=== PATIENT | female | born 1950 | race African-American/Black ===

== ENCOUNTER 2016-06-02 16:12 | Inpatient (IN) | payer OTHER ==
[2016-06-02] MEDS ORDERED: DEXAMETHASONE SOD PHOSPHATE 20 MG/5 ML VIAL IVPB ONE (18:29)
--- NOTE | 2016-06-02 18:29 | PDOC ---
History of Present Illness - History of Present Illness Initial Comments: 06/02/16 20:29 Patient is a 66 year old female with significant medical hx of hypercholesterolemia who is presenting to the ED with sore throat for several days. The patient complains of sore throat with radiation to her right ear and trismus. She has been having difficulty taking in PO due to pain. The patient also complains of trismus; she is able to speak in clear sentences. The patient was sent by PMD, Dr. Millard. <Bess Rust - Last Filed: 06/02/16 20:29> <Valerie Aviles - Last Filed: 06/03/16 01:38> - General Chief Complaint: Sore Throat Stated Complaint: PCP SENT/EVALUATION Time Seen by Provider: 06/02/16 17:14 Past History <Bess Rust - Last Filed: 06/02/16 20:29> - Past Medical History Diabetes: Yes (BORDERLINE) Hypercholesterolemia: Yes - Surgical History Appendectomy: Yes - Psycho/Social/Smoking Cessation Hx Anxiety: No Suicidal Ideation: No Smoking History: Never smoked Have you smoked in the past 12 months: No If you are a former smoker, when did you quit?: 45 years ago Information on smoking cessation initiated: No Hx Alcohol Use: No Drug/Substance Use Hx: No Substance Use Type: None <Valerie Aviles - Last Filed: 06/03/16 01:38> - Past Medical History Allergies/Adverse Reactions: Allergies Allergy/AdvReac Type Severity Reaction Status Date / Time aspirin Allergy Intermediate rash and Verified 06/02/16 16:19 hives codeine Allergy Intermediate SEVERE Verified 06/02/16 16:19 INDIGESTION Home Medications: Ambulatory Orders Gabapentin [Neurontin] 100 mg PO BID 06/19/15 Rosuvastatin [Crestor -] 5 mg PO HS 06/19/15 Clopidogrel Bisulfate [Clopidogrel] 75 mg PO ASDIR 06/02/16 Furosemide 20 mg PO ASDIR 06/02/16 Review of Systems - Review of Systems Comments:: 06/02/16 20:30 CONSTITUTIONAL: Absent: fever, chills, diaphoresis, generalized weakness, malaise, loss of appetite HEENT: Present: throat pain, right ear pain, trismus Absent: rhinorrhea, nasal congestion, mouth swelling, eye pain, visual changes CARDIOVASCULAR: Absent: chest pain, syncope, palpitations, irregular heart rate, lightheadedness , peripheral edema RESPIRATORY: Absent: cough, shortness of breath, dyspnea with exertion, orthopnea, wheezing, stridor, hemoptysis GASTROINTESTINAL: Absent: abdominal pain, abdominal distension, nausea, vomiting, diarrhea, constipation, melena, hematochezia GENITOURINARY: Absent: dysuria, frequency, urgency, hesitancy, hematuria, flank pain, genital pain MUSCULOSKELETAL: Absent: myalgia, arthralgia, joint swelling SKIN: Absent: rash, itching, pallor HEMATOLOGIC/IMMUNOLOGIC: Absent: easy bleeding, easy bruising, lymphadenopathy, frequent infections ENDOCRINE: Absent: unexplained weight gain, unexplained weight loss, heat intolerance, cold intolerance NEUROLOGIC: Absent: headache, focal weakness or paresthesia, dizziness, unsteady gait, seizure, mental status changes, bladder or bowel incontinence. PSYCHIATRIC: Absent: anxiety, depression, suicidal or homicidal ideation, hallucinations <Bess Rust - Last Filed: 06/02/16 20:29> *Physical Exam - Vital Signs Last Vital Signs Temp Pulse Resp BP Pulse Ox 99.3 F 111 H 18 148/82 98 06/02/16 16:15 06/02/16 16:15 06/02/16 16:15 06/02/16 16:15 06/02/16 16:15 - Physical Exam Comments: 06/02/16 20:31 GENERAL: Well developed, well nourished. Awake and alert. No acute distress. No tripoding. HEENT: Normocephalic, atraumatic. PERRLA, EOMI. No conjunctival pallor. Sclera are non- icteric. Moist mucous membranes. Oropharynx is clear. Able to handle her own saliva. No hot potato voice. Trismus. Able to speak with clear sentences. NECK: Supple. Full ROM. No JVD. Carotid pulses 2+ and symmetric, without bruits. No thyromegaly. No lymphadenopathy. CARDIOVASCULAR: Regular rate and rhythm. No murmurs, rubs, or gallops. Distal pulses are 2+ and symmetric. PULMONARY: No evidence of respiratory distress. Lungs clear to auscultation bilaterally. No wheezing, rales or rhonchi. ABDOMINAL: Soft. Non-tender. Non-distended. No rebound or guarding. No organomegaly. Normoactive bowel sounds. MUSCULOSKELETAL: Normal range of motion at all joints. No bony deformities or tenderness. No CVA tenderness. EXTREMITIES: No cyanosis. No clubbing. No edema. No calf tenderness. SKIN: Warm and dry. Normal capillary refill. No rashes. No jaundice. NEUROLOGICAL: Alert, awake, appropriate. Cranial nerves 2-12 intact. No gross focal neurological deficits. Normal speech. Gait is normal without ataxia. PSYCHIATRIC: Cooperative. Good eye contact. Appropriate mood and affect. <Bess Rust - Last Filed: 06/02/16 20:29> - Vital Signs Last Vital Signs Temp Pulse Resp BP Pulse Ox 99.3 F 111 H 18 148/82 98 06/02/16 16:15 06/02/16 16:15 06/02/16 16:15 06/02/16 16:15 06/02/16 16:15 <Valerie Aviles - Last Filed: 06/03/16 01:38> ED Treatment Course - LABORATORY CBC & Chemistry Diagram: 06/02/16 18:46 06/02/16 18:46 - ADDITIONAL ORDERS Additional order review: Laboratory Results 06/02/16 06/02/16 18:46 18:46 Sodium 138 Potassium 3.8 Chloride 103 Carbon Dioxide 30 Anion Gap 5 L BUN 15 D Creatinine 1.0 Creat Clearance w eGFR 55.30 Random Glucose 92 D Lactic Acid 0.848 Calcium 8.9 Total Bilirubin 1.0 D AST 15 ALT 20 Alkaline Phosphatase 86 Total Protein 8.3 H Albumin 3.8 06/02/16 18:46 RBC 4.96 MCV 78.0 L MCHC 31.7 L RDW 15.5 MPV 7.8 Neutrophils % 65.6 D Lymphocytes % 25.2 D Monocytes % 7.4 D Eosinophils % 1.1 D Basophils % 0.7 D - RADIOLOGY Radiograph Interpretation: 06/02/16 20:34 Chest X-Ray Impression: Mild bilateral increased interstitial markings and minimal bibasal atelectatic changes, left more the right without gross evidence of infiltrates. Reported By: Kenia Obando MD - Medications Given in the ED: ED Medications Discontinued Medications Generic Name Dose Route Start Last Admin Trade Name Freq PRN Reason Stop Dose Admin Acetaminophen 1,000 mg 06/02/16 18:31 06/02/16 18:46 Ofirmev Injection - IVPB 06/02/16 18:32 1,000 mg ONCE ONE Administration Dexamethasone Sodium Phosphate 20 mg 06/02/16 18:29 06/02/16 18:40 Decadron Injection - IVPB 06/02/16 18:30 20 mg ONCE ONE Administration <Bess Rust - Last Filed: 06/02/16 20:29> - LABORATORY CBC & Chemistry Diagram: 06/02/16 18:46 06/02/16 18:46 <Valerie Aviles - Last Filed: 06/03/16 01:38> Medical Decision Making - Medical Decision Making 06/03/16 01:35 66-year-old female was referred to the emergency department by Dr. Millard The patient had complaint of sore throat since Wednesday and then developed difficulty swallowing and trismus. On exam, she has peritonsillar swelling and exudate, he also has some limited opening of her jaw due to trismus -She is not tripoding. She is able to handle her own secretions. She does not have a hot potato voice -Patient received I see steroids and IV antibiotics Her symptoms greatly improved after the decadron CBC and chemistries were reviewed. She has no leukocytosis or fever at This time CAT scan of her neck did reveal a right-sided peritonsillar abscess of 2 cm x 1.3 cm with mild impingement of the airway Case discussed with Dr. Millard and the patient admitted for IV antibiotics, Unasyn throat consultation in the morning Impression right. Also abscess <Valerie Aviles - Last Filed: 06/03/16 01:38> *DC/Admit/Observation/Transfer - Attestations Scribe Attestion: 06/02/16 20:34 Documentation prepared by Bess Rust, acting as medical record technician for Valerie Aviles MD. <Bess Rust - Last Filed: 06/02/16 20:29> - Discharge Dispostion Admit: Yes <Vlaerie Aviles - Last Filed: 06/03/16 01:38> Diagnosis at time of Disposition: Peritonsillar abscess - Referrals Referrals: Tommie Millard MD [Primary Care Provider] -
[2016-06-02] MEDS ORDERED: ACETAMINOPHEN 1000 MG/100 ML VIAL (NON FORMULARY) IVPB ONE (18:31)
[2016-06-02] MEDS ORDERED: CEFTRIAXONE 1,000 MG in DEXTROSE 5%-WATER - 50 ML IVPB ONE (18:32)
[2016-06-02] MEDS ORDERED: ACETAMINOPHEN INJECTION 100 ML IVPB ONE (18:38)
[2016-06-02] MEDS ORDERED: DEXAMETHASONE SOD PHOSPHATE 10 MG/1 ML VIAL ONE (18:38)
[2016-06-02 19:03] LABS: BASOPHIL 0.7 % (0-2.0); EOSINOPHIL 1.1 % (0-4.5); MCH 24.8 pg (25.7-33.7); MCHC 31.7 g/dl (32.0-36.0); MEAN PLT VOLUME 7.8 fl (7.5-11.1); NEUTROPHILS 65.6 % (42.8-82.8); PLATELET COUNT 238 K/MM3 (134-434); RDW 15.5 % (11.6-15.6); WHITE BLOOD COUNT 9.5 K/mm3 (4.0-10.0)
[2016-06-02 19:30] LABS: ALBUMIN 3.8 g/dl (3.4-5.0); CALCIUM 8.9 mg/dL (8.5-10.1); COCKROFT - GAULT 96.1605; TOT PROT 8.3 g/dl (6.4-8.2)
[2016-06-02] MEDS ORDERED: CEFTRIAXONE 50 ML ONE (20:38)
[2016-06-02] MEDS ORDERED: ACETAMINOPHEN 325 MG TABLET (FP) PO PRN (23:54)
[2016-06-03] MEDS ORDERED: ALBUTEROL SO4 0.083% IH SOL 2.5 MG/3 ML VIAL.NEB. NEB ONE (00:22)
[2016-06-03] MEDS: ALBUTEROL SO4 0.083% IH SOL 2.5 MG/3 ML VIAL.NEB. NEB SCH ×3 (00:45→18:10)
[2016-06-03] MEDS: D5-1/2NS+20 MEQ KCL - 1,000 ML IV SCH ×3 (01:43→16:35)
[2016-06-03] MEDS: DEXAMETHASONE SOD PHOSPHATE 10 MG/1 ML VIAL IVPB SCH ×4 (04:30→22:00)
[2016-06-03 05:31] VITALS: BMI 34.1
--- NOTE | 2016-06-03 07:58 | HP ---
Admitting History and Physical - Admission History of Present Illness: 66 y/o female with h/o HLD who presented to office with sore throat and ear pain for one week. 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 Cardiovascular: Yes: HTN, Hyperlipdemia Pulmonary: No: COPD Gastrointestinal: No: Cancer, Constipation Renal/: No: Renal Failure, Renal Inusuff Heme/Onc: No: Anemia, Cancer ENT: Yes: Other (sore throat and pain on swallowing) - Smoking History Smoking history: Never smoked Have you smoked in the past 12 months: No If you are a former smoker, when did you quit?: 45 years ago - Alcohol/Substance Use Hx Alcohol Use: No Home Medications - Allergies Allergies/Adverse Reactions: Allergies Allergy/AdvReac Type Severity Reaction Status Date / Time aspirin Allergy Intermediate rash and Verified 06/02/16 16:19 hives codeine Allergy Intermediate SEVERE Verified 06/02/16 16:19 INDIGESTION - Home Medications Home Medications: Ambulatory Orders Gabapentin [Neurontin] 100 mg PO BID 06/19/15 Rosuvastatin [Crestor -] 5 mg PO HS 06/19/15 Clopidogrel Bisulfate [Clopidogrel] 75 mg PO ASDIR 06/02/16 Furosemide 20 mg PO ASDIR 06/02/16 Review of Systems - Review of Systems Constitutional: denies: Fever Eyes: reports: No Symptoms HENT: reports: Difficult Swallowing, Ear Pain, Throat Pain Neck: reports: Tenderness Cardiovascular: denies: Chest Pain, Palpitations Respiratory: denies: SOB, SOB on Exertion Gastrointestinal: reports: No Symptoms Genitourinary: reports: No Symptoms Neurological: reports: No Symptoms Physical Examination Vital Signs: Vital Signs Temperature 97.7 F 06/03/16 06:00 Pulse Rate 83 06/03/16 06:00 Respiratory Rate 20 06/03/16 06:00 Blood Pressure 112/60 06/03/16 06:00 O2 Sat by Pulse Oximetry (%) 98 06/03/16 04:00 HENT: Yes: Pharyngeal Erythema, Other (swelling right tonsilar area) Neck: Yes: Supple Cardiovascular: Yes: Regular Rate and Rhythm Respiratory: Yes: Regular, CTA Bilaterally Gastrointestinal: Yes: Normal Bowel Sounds, Soft Imaging - Results Cat Scan: Report Reviewed Problem List - Problems (1) Peritonsillar abscess Assessment/Plan: IV ABX ID AND ENT IV STEROIDS IVF Code(s): J36 - PERITONSILLAR ABSCESS (2) HLD (hyperlipidemia) Assessment/Plan: CRESTOR Code(s): E78.5 - HYPERLIPIDEMIA, UNSPECIFIED (3) HTN (hypertension) Assessment/Plan: MONITOR OFF MEDS Code(s): I10 - ESSENTIAL (PRIMARY) HYPERTENSION
[2016-06-03 07:59] LABS: BASOPHIL 0.2 % (0-2.0); MCH 24.8 pg (25.7-33.7); MCHC 31.7 g/dl (32.0-36.0); MEAN CELL VOLUME 78.1 fl (80-96); MEAN PLT VOLUME 7.9 fl (7.5-11.1); PLATELET COUNT 200 K/MM3 (134-434); RDW 15.2 % (11.6-15.6); WHITE BLOOD COUNT 6.5 K/mm3 (4.0-10.0)
--- NOTE | 2016-06-03 08:22 | EKG ---
Test Reason : Blood Pressure : / mmHG Vent. Rate : 088 BPM Atrial Rate : 088 BPM P-R Int : 200 ms QRS Dur : 096 ms QT Int : 356 ms P-R-T Axes : 050 015 048 degrees QTc Int : 430 ms NORMAL SINUS RHYTHM NORMAL ECG WHEN COMPARED WITH ECG OF 21-MAR-2004 09:01, NO SIGNIFICANT CHANGE WAS FOUND Confirmed by ACACIA CHACKO MD ([id number]) on 06/03/2016 8:22:23 AM Referred By: Confirmed By:ACACIA CHACKO MD
[2016-06-03 08:55] LABS: ALBUMIN 3.1 g/dl (3.4-5.0); ALK PHOS 81 U/L (45-117); ANION GAP 13 (8-16); BILIRUBIN,TOTAL 0.6 mg/dL (0.2-1.0); CALCIUM 8.7 mg/dL (8.5-10.1); CO2 23 mmol/L (21-32); COCKROFT - GAULT 103.3685; CREATININE 0.9 mg/dL (0.55-1.02); GLUCOSE,RANDOM 282 mg/dL (74-106); SGOT/AST 11 U/L (15-37); SGPT/ALT 18 U/L (12-78); TOT PROT 7.2 g/dl (6.4-8.2)
[2016-06-03] MEDS ORDERED: PT OWN MED DRAWER 7, Y5N ONE ×3 (09:35→21:52)
[2016-06-03] MEDS: GABAPENTIN 100 MG CAPSULE (FP) PO SCH ×2 (09:49→22:00)
[2016-06-03] MEDS: HEPARIN NA (PORCINE) 5,000 UNITS/ML 1ML VIAL SQ SCH ×2 (09:49→22:00)
[2016-06-03] MEDS ORDERED: CEFTRIAXONE 2 GM in DEXTROSE 5%-WATER - 100 ML IVPB SCH (10:00)
--- NOTE | 2016-06-03 10:57 | CONSULT ---
Consultation: REQUESTING PROVIDER: CONSULT REQUEST: We have been asked to medically evaluate this patient for ( specify). HISTORY OF PRESENT ILLNESS: The pt is a 66 year old female with a PMH of HDL and diabetes mellitus who presents to the hospital referred from her PCP office. She has been complaining of difficulty swallowing and pain on right side of her neck x 1 week, worse in the past several days. Today she is complaining of discomfort with swallowing and pain on right side of her neck only when trying to stick out her tongue. She states that it has improved since yesterday when she presented to ED. She denied sick contacts, fever, chills, chest pain, difficulty breathing, SOB, chest pain. She denies abdominal pain, N/V, diarrhea, constipation. She denies dysuria, increased frequency, urgency. REVIEW OF SYSTEMS: CONSTITUTIONAL: Absent: fever, chills, diaphoresis, generalized weakness, malaise, loss of appetite, weight change HEENT: throat pain, throat swelling, difficulty swallowing, Absent: rhinorrhea, nasal congestion, mouth swelling, ear pain, eye pain, visual changes CARDIOVASCULAR: Absent: chest pain, syncope, palpitations, irregular heart rate, lightheadedness , peripheral edema RESPIRATORY: Absent: cough, shortness of breath, dyspnea with exertion, orthopnea, wheezing, stridor, hemoptysis GASTROINTESTINAL: Absent: abdominal pain, abdominal distension, nausea, vomiting, diarrhea, constipation, melena, hematochezia GENITOURINARY: Absent: dysuria, frequency, urgency, hesitancy, hematuria, flank pain, genital pain MUSCULOSKELETAL: Absent: myalgia, arthralgia, joint swelling, back pain, neck pain SKIN: Absent: rash, itching, pallor NEUROLOGIC: Absent: headache, focal weakness or paresthesias, dizziness, unsteady gait, seizure, mental status changes, bladder or bowel incontinence PSYCHIATRIC: Absent: anxiety, depression, suicidal or homicidal ideation, hallucinations. PHYSICAL EXAMINATION Vital Signs - 24 hr 06/03/16 06/03/16 04:00 06:00 Temperature 97.5 F L 97.7 F Pulse Rate 88 83 Respiratory 20 20 Rate Blood Pressure 158/82 112/60 O2 Sat by Pulse 98 Oximetry (%) GENERAL: Awake, alert, and fully oriented, in no acute distress. HEAD: Normal with no signs of trauma. EYES: Pupils equal, round and reactive to light, extraocular movements intact, sclera anicteric, conjunctiva clear. EARS, NOSE, THROAT: Ears normal, nares patent, oropharynx; difficulty with sticking out her tongue, swelling present. Moist mucous membranes. NECK: Normal range of motion, supple without lymphadenopathy, JVD, or masses. LUNGS: Breath sounds equal, clear to auscultation bilaterally. No wheezes, and no crackles. No accessory muscle use. HEART: Regular rate and rhythm, normal S1 and S2 without murmur, rub or gallop. ABDOMEN: Soft, nontender, not distended, normoactive bowel sounds, no guarding, no rebound, no masses. No hepatomegaly or splenomegaly. MUSCULOSKELETAL: Normal range of motion at all joints. No bony deformities or tenderness. No CVA tenderness. UPPER EXTREMITIES: 2+ pulses, warm. No cyanosis. No clubbing. No peripheral edema. LOWER EXTREMITIES: 2+ pulses, warm. No calf tenderness. No peripheral edema, venous stasis changes B/L. NEUROLOGICAL: Cranial nerves II-XII intact. Normal speech. Normal gait. PSYCHIATRIC: Cooperative. Good eye contact. Appropriate mood and affect. SKIN: Warm, dry, normal turgor, no rashes or lesions noted. Laboratory Results - last 24 hr 06/03/16 06/03/16 06/03/16 00:31 06:15 06:15 WBC 6.5 D RBC 4.71 Hgb 11.7 Hct 36.8 MCV 78.1 L MCHC 31.7 L RDW 15.2 Plt Count 200 MPV 7.9 Neutrophils % 85.0 H D Lymphocytes % 13.8 D Monocytes % 1.0 L D Eosinophils % 0.0 D Basophils % 0.2 Sodium 139 Potassium 4.1 Chloride 103 Carbon Dioxide 23 D Anion Gap 13 BUN 19 H D Creatinine 0.9 Creat Clearance w eGFR > 60 POC Glucometer [phone] Random Glucose 282 H D Calcium 8.7 Total Bilirubin 0.6 D AST 11 L D ALT 18 Alkaline Phosphatase 81 Total Protein 7.2 Albumin 3.1 L Active Medications Generic Name Dose Route Start Last Admin Trade Name Freq PRN Reason Stop Dose Admin Acetaminophen 650 mg 06/02/16 23:54 Tylenol - PO Q4H PRN FEVER OR PAIN Albuterol Sulfate 1 amp 06/03/16 00:00 06/03/16 00:45 Ventolin 0.083% Nebulizer Soln - NEB Not Given Q6HPO [facility] Dexamethasone Sodium Phosphate 10 mg 06/03/16 03:00 06/03/16 09:48 Decadron Injection - IVPB 10 mg Q6H-IV [facility] Administration Gabapentin 100 mg 06/03/16 10:00 06/03/16 09:49 Neurontin - PO 100 mg BID [facility] Administration Heparin Sodium (Porcine) 5,000 unit 06/03/16 10:00 06/03/16 09:49 Heparin - SQ 5,000 unit BID [facility] Administration Ceftriaxone Sodium 2 gm/ 100 mls @ 200 mls/hr 06/03/16 10:00 Dextrose IVPB DAILY [facility] Potassium Chloride/Dextrose/Sod Cl 1,000 mls @ 100 mls/hr 06/02/16 23:45 04:39 D5-1/2ns+20 Meq Kcl - IV 100 mls/hr ASDIR [facility]NAN[facility] Administration Rosuvastatin Calcium 5 mg 06/03/16 22:00 Crestor - PO HS [facility] ASSESSMENT/PLAN: The pt is a 66 year old female with a PMH of HDL and diabetes mellitus who presents to the hospital referred from her PCP office. She has been complaining of difficulty swallowing and pain on right side of her neck x 1 week, worse in the past several days. She is admitted for peritonsillar abscess. Peritonsillar abscess: -continue Ceftriaxone 2g qd, added Clindamycin 600 mg Q8h -ASO ordered -throat culture ordered -CT neck rewieved -continue Decadron -cont Tylenol when needed HDL: -continue Crestor Dispo: We will continue to follow the patient. Thank you for this consultative opportunity. Visit type - Emergency Visit Emergency Visit: Yes ED Registration Date: 06/02/16 Care time: The patient presented to the Emergency Department on the above date and was hospitalized for further evaluation of their emergent condition. - New Patient This patient is new to me today: Yes Date on this admission: 06/03/16 - Critical Care Critical Care patient: No
--- NOTE | 2016-06-03 11:37 | PN ---
Teaching Attending Note Name of Resident: Gayle Suazo ATTENDING PHYSICIAN STATEMENT I saw and evaluated the patient. I reviewed the resident's note and discussed the case with the resident. I agree with the resident's findings and plan as documented. SUBJECTIVE: OBJECTIVE: ASSESSMENT AND PLAN: Peritonsillar abscess ENT evaluation Await blood c/s. Throat c/s , ASO titer Continue ceftriaxone/ clindamycin Taper steroids
[2016-06-03] MEDS: CEFTRIAXONE 2G/100 ML IVPB SCH (11:40)
--- NOTE | 2016-06-03 11:51 | EKG ---
Test Reason : Blood Pressure : / mmHG Vent. Rate : 071 BPM Atrial Rate : 071 BPM P-R Int : 232 ms QRS Dur : 102 ms QT Int : 394 ms P-R-T Axes : 060 -03 039 degrees QTc Int : 428 ms SINUS RHYTHM WITH 1ST DEGREE A-V BLOCK OTHERWISE NORMAL ECG WHEN COMPARED WITH ECG OF 02-JUN-2016 18:52, [place] INTERVAL HAS INCREASED Confirmed by ARNULFO CARMONA, DAYSI ([id number]) on 06/03/2016 11:51:49 AM Referred By: Moon HERRERA Confirmed By:DAYSI ARREDONDO MD
[2016-06-03 12:57] LABS: ANTISTREP O SCREEN POSITIVE
[2016-06-03] MEDS: CLINDAMYCIN 600MG PREMIX IVPB 50 ML IVPB SCH (17:29)
--- NOTE | 2016-06-03 20:47 | CON.ENT ---
Consult Consult Specialty:: ENT Referred by:: Dr. Millard Reason for Consultation:: peritonsillar abscess - History of Present Illness Chief Complaint: throat pain History of Present Illness: 66 yo F admitted 06-02-16 with throat pain and peritonsillar abscess reports intermittent history of tonsil problem ~every year often gets right ear pain associated with it Now, has had throat problem since 05-26, got very bad 05-29, went to Dr. Millard's office yesterday 06-02 and admitted via ER. has had IV fluids and IV antibiotics (ceftriaxone and clindamycin) as well as IV steroids reports improvement prior had severe pain and could not swallow, also noted voice change and inability to open mouth much. had right ear pain. Now reports reduced pain, voice better, can open mouth more but still pain with wide opening. 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 Cardio/Vascular: Yes: HTN, Hyperlipdemia Pulmonary: No: COPD Gastrointestinal: No: Cancer, Constipation Renal/: No: Renal Failure, Renal Inusuff ENT: Yes: Other (sore throat and pain on swallowing) - Alcohol/Substance Use Hx Alcohol Use: No - Smoking History Smoking history: Never smoked Have you smoked in the past 12 months: No If you are a former smoker, when did you quit?: 45 years ago Home Medications - Allergies Allergies/Adverse Reactions: Allergies Allergy/AdvReac Type Severity Reaction Status Date / Time aspirin Allergy Intermediate rash and Verified 06/02/16 16:19 hives codeine Allergy Intermediate SEVERE Verified 06/02/16 16:19 INDIGESTION - Home Medications Home Medications: Ambulatory Orders Gabapentin [Neurontin] 100 mg PO BID 06/19/15 Rosuvastatin [Crestor -] 5 mg PO HS 06/19/15 Clopidogrel Bisulfate [Clopidogrel] 75 mg PO ASDIR 06/02/16 Furosemide 20 mg PO ASDIR 06/02/16 Review of Systems - Review of Systems HENT: reports: Ear Pain, Throat Pain Physical Exam-ENT Vital Signs: Vital Signs Temperature 98.1 F 06/03/16 17:10 Pulse Rate 72 06/03/16 17:10 Respiratory Rate 20 06/03/16 17:10 Blood Pressure 130/82 06/03/16 17:10 O2 Sat by Pulse Oximetry (%) 98 06/03/16 09:00 Constitutional: Yes: Well Nourished, No Distress, Obese Head: Yes: WNL Face: Yes: WNL Eyes: Yes: WNL Nose: Yes: Edema Nasal Passage: Yes: Other (turbinate hypertrophy) Oral/Pharynx: Yes: Other (partial dentures, slight trismus, soft palate normal, no bulging, no exudate oropharynx narrowed from elevated tongue (position 3), tonsils not significantly enlarged, no clinical peritonsillar abscess tonight) Outer Ear: Yes: WNL Ear Canal: Yes: WNL Tympanic Membrane: Yes: WNL Neck: Yes: Other (tender right anterior cervical, small LN palpable, no other mass, supple, salivary and thyroid glands WNL voice clear and strong, no stridor or respiratory distress) Respiratory: Yes: WNL Imaging - Results Cat Scan: Report Reviewed, Image Reviewed (right suspected peritonsillar vs parapharyngeal abscess) Problem List - Problems (1) Peritonsillar abscess Assessment/Plan: hx recurrent (annual) tonsil infections, but a 9 day hx of severely worsening pain improved since admission, rx ceftriaxone/clindamycin, steroids had trismus and voice change, improving WBC WNL, blood culture neg but ASO + Recommend: continue antibiotics as per ID ok to taper steroids advance diet as tolerated hope for continued clinical improvement no surgical intervention indicated now given clinical improvement with medical therapy Thank you for consultation, Luis Pagan MD FACS Code(s): J36 - PERITONSILLAR ABSCESS
[2016-06-03] MEDS: ROSUVASTATIN CA 5 MG TABLET (FP) PO SCH (22:00)
[2016-06-04] MEDS: ALBUTEROL SO4 0.083% IH SOL 2.5 MG/3 ML VIAL.NEB. NEB SCH ×5 (00:04→23:34)
[2016-06-04] MEDS: CLINDAMYCIN 600MG PREMIX IVPB 50 ML IVPB SCH ×3 (01:25→17:13)
[2016-06-04] MEDS: DEXAMETHASONE SOD PHOSPHATE 10 MG/1 ML VIAL IVPB SCH ×3 (02:19→21:25)
--- NOTE | 2016-06-04 07:45 | PN ---
Progress Note, Physician - Current Medication List Current Medications: Active Medications Acetaminophen (Tylenol -) 650 mg PO Q4H PRN PRN Reason: FEVER OR PAIN Albuterol Sulfate (Ventolin 0.083% Nebulizer Soln -) 1 amp NEB Q6HPO [facility] Last Admin: 06/04/16 06:46 Dose: Not Given Dexamethasone Sodium Phosphate (Decadron Injection -) 10 mg IVPB Q6H-IV [facility] Last Admin: 06/04/16 02:19 Dose: 10 mg Gabapentin (Neurontin -) 100 mg PO BID [facility] Last Admin: 06/03/16 22:00 Dose: 100 mg Heparin Sodium (Porcine) (Heparin -) 5,000 unit SQ BID [facility] Last Admin: 06/03/16 22:00 Dose: 5,000 unit Potassium Chloride/Dextrose/Sod Cl (D5-1/2ns+20 Meq Kcl -) 1,000 mls @ 100 mls/ hr IV ASDIR [facility] Last Admin: 06/03/16 16:35 Dose: 100 mls/hr Clindamycin Phosphate (Cleocin 600 Mg Premix Ivpb -) 50 mls @ 100 mls/hr IVPB Q8H-IV [facility] Last Admin: 06/04/16 01:25 Dose: 100 mls/hr Ceftriaxone Sodium (Rocephin 2gm Ivpb (Pre-Docked)) 100 mls @ 200 mls/hr IVPB DAILY [facility] Last Admin: 06/03/16 11:40 Dose: 200 mls/hr Rosuvastatin Calcium (Crestor -) 5 mg PO HS [facility] Last Admin: 06/03/16 22:00 Dose: 5 mg - Objective Vital Signs: Vital Signs Temperature 98.4 F 06/04/16 07:35 Pulse Rate 70 06/04/16 07:35 Respiratory Rate 20 06/04/16 07:35 Blood Pressure 132/62 06/04/16 07:35 O2 Sat by Pulse Oximetry (%) 98 06/03/16 09:00 Labs: CBC, BMP 06/03/16 06:15 06/03/16 06:15 Problem List - Problems (1) Peritonsillar abscess Code(s): J36 - PERITONSILLAR ABSCESS (2) HLD (hyperlipidemia) Code(s): E78.5 - HYPERLIPIDEMIA, UNSPECIFIED (3) HTN (hypertension) Code(s): I10 - ESSENTIAL (PRIMARY) HYPERTENSION
[2016-06-04] MEDS ORDERED: PT OWN MED DRAWER 7, Y5N ONE ×2 (09:42→20:58)
[2016-06-04] MEDS: GABAPENTIN 100 MG CAPSULE (FP) PO SCH ×2 (09:47→21:26)
[2016-06-04] MEDS: CEFTRIAXONE 2G/100 ML IVPB SCH (09:51)
[2016-06-04] MEDS: HEPARIN NA (PORCINE) 5,000 UNITS/ML 1ML VIAL SQ SCH ×2 (09:53→21:25)
--- NOTE | 2016-06-04 14:34 | PN ---
Physical Exam: SUBJECTIVE: Patient seen and examined. She is feeling better today, complaining of mild discomfort when swallowing food. She started regular diet today. OBJECTIVE: Vital Signs Period Temp Pulse Resp BP Sys/Sue Pulse Ox Last 24 Hr 97.5 F-98.4 F 70-76 19-20 126-148/62-87 GENERAL: The patient is awake, alert, and fully oriented, in no acute distress. HEAD: Normal with no signs of trauma. EYES: PERRL, extraocular movements intact, sclera anicteric, conjunctiva clear. No ptosis. ENT: Ears normal, nares patent, oropharynx clear without exudates, moist mucous membranes, mild tenderness on right side of her neck when opening jaw and protruding tongue. NECK: Trachea midline, full range of motion, supple. LUNGS: Breath sounds equal, clear to auscultation bilaterally, no wheezes, no crackles, no accessory muscle use. HEART: Regular rate and rhythm, S1, S2 without murmur, rub or gallop. ABDOMEN: Soft, nontender, nondistended, normoactive bowel sounds, no guarding, no rebound. EXTREMITIES: 2+ pulses, warm, well-perfused, no edema. NEUROLOGICAL: No facial asymmetry. Normal speech, gait not observed. PSYCH: Normal mood, normal affect. SKIN: Warm, dry, normal turgor, no rashes or lesions noted Active Medications Generic Name Dose Route Start Last Admin Trade Name Freq PRN Reason Stop Dose Admin Acetaminophen 650 mg 06/02/16 23:54 Tylenol - PO Q4H PRN FEVER OR PAIN Albuterol Sulfate 1 amp 06/03/16 00:00 06/04/16 11:31 Ventolin 0.083% Nebulizer Soln - NEB Not Given Q6HPO FERNANDEZ Dexamethasone Sodium Phosphate 10 mg 06/04/16 10:00 06/04/16 09:49 Decadron Injection - IVPB 10 mg BID FERNANDEZ Administration Gabapentin 100 mg 06/03/16 10:00 06/04/16 09:47 Neurontin - PO 100 mg BID FERNANDEZ Administration Heparin Sodium (Porcine) 5,000 unit 06/03/16 10:00 06/04/16 09:53 Heparin - SQ 5,000 unit BID FERNANDEZ Administration Potassium Chloride/Dextrose/Sod Cl 1,000 mls @ 100 mls/hr 06/02/16 23:45 16:35 D5-1/2ns+20 Meq Kcl - IV 100 mls/hr ASDIR FERNANDEZ Administration Clindamycin Phosphate 50 mls @ 100 mls/hr 06/03/16 18:00 06/04/16 09:47 Cleocin 600 Mg Premix Ivpb - IVPB 100 mls/hr Q8H-IV FERNANDEZ Administration Ceftriaxone Sodium 100 mls @ 200 mls/hr 06/03/16 11:15 06/04/16 09:51 Rocephin 2gm Ivpb (Pre-Docked) IVPB 200 mls/hr DAILY FERNANDEZ Administration Rosuvastatin Calcium 5 mg 06/03/16 22:00 06/03/16 22:00 Crestor - PO 5 mg HS FERNANDEZ Administration ASSESSMENT/PLAN: The pt is a 66 year old female with a PMH of HDL and diabetes mellitus who presents to the hospital referred from her PCP office. She has been complaining of difficulty swallowing and pain on right side of her neck x 1 week, worse in the past several days. She is admitted for peritonsillar abscess. Peritonsillar abscess: -Change to Augumentin 875 BID tomorrow for 7 days. -ASO positive, throat culture positive -cont Tylenol when needed HDL: -continue Crestor Dispo: Thank you for this consultative opportunity. Visit type - Emergency Visit Emergency Visit: Yes ED Registration Date: 06/02/16 Care time: The patient presented to the Emergency Department on the above date and was hospitalized for further evaluation of their emergent condition. - New Patient This patient is new to me today: No - Critical Care Critical Care patient: No
--- NOTE | 2016-06-04 15:06 | PN ---
Teaching Attending Note Name of Resident: Gayle Suazo ATTENDING PHYSICIAN STATEMENT I saw and evaluated the patient. I reviewed the resident's note and discussed the case with the resident. I agree with the resident's findings and plan as documented. SUBJECTIVE:Clinically improved Able to swallow solid food with mild discomfort No respiratory difficulties OBJECTIVE: Throat - patent airway Lungs clear no stidor/ wheeze ASSESSMENT AND PLAN: Peritonsilar abscess Clinically improved May substitute po Augmentin 875mg po bid x 7d
[2016-06-04] MEDS: D5-1/2NS+20 MEQ KCL - 1,000 ML IV SCH (16:59)
[2016-06-04] MEDS: ROSUVASTATIN CA 5 MG TABLET (FP) PO SCH (21:25)
[2016-06-05] MEDS: CLINDAMYCIN 600MG PREMIX IVPB 50 ML IVPB SCH (01:00)
[2016-06-05] MEDS: ALBUTEROL SO4 0.083% IH SOL 2.5 MG/3 ML VIAL.NEB. NEB SCH ×2 (07:00→11:00)
[2016-06-05 08:11] VITALS: BP 141/69; TEMP 97.3
[2016-06-05] MEDS ORDERED: PT OWN MED DRAWER 7, Y5N ONE (09:33)
[2016-06-05] MEDS: GABAPENTIN 100 MG CAPSULE (FP) PO SCH (09:36)
[2016-06-05] MEDS: HEPARIN NA (PORCINE) 5,000 UNITS/ML 1ML VIAL SQ SCH (09:37)
[2016-06-05] MEDS ORDERED: DEXAMETHASONE 4 MG TABLET (FP) PO SCH (10:00)
[2016-06-05 11:24] VITALS: PULSE 64
[2016-06-05] MEDS ORDERED: AMOX TR/POT CLAV 875MG/125MG TABLETS (FP) PO SCH (17:30)
== END 2016-06-05 12:20 | disposition home or self-care (01) | DRG 153 ==
LOC: JER 16:12 → JERFT 16:12 → JERBED 23:49 → J8W 06-03 03:58
PROVIDERS: ADMIT Family Medicine; ATTEND Family Medicine
DX: J36 Peritonsillar abscess (principal); E78.5 Hyperlipidemia, unspecified; I10 Essential (primary) hypertension
CPT/HCPCS: 36415; 70491-TC; 71020-TC; 80053; 83605; 85025; 86060; 86063; 87040; 87070; 93005; 93010; 94640; 99284-25; J1644; J8540

== ENCOUNTER 2016-12-03 14:14 | Emergency (ER) | payer OTHER ==
[2016-12-03 14:37] VITALS: BP 158/88; PULSE 73; TEMP 98.1; BMI 35.2
--- NOTE | 2016-12-03 15:02 | PDOC ---
History of Present Illness - General Chief Complaint: Sore Throat Stated Complaint: SENT BY PCP Time Seen by Provider: 12/03/16 14:46 History Source: Patient Exam Limitations: No Limitations - History of Present Illness Initial Comments: 12/03/16 15:06 Patient is a 66-year-old female, with history of borderline diabetes and high cholesterol presents emergency Department with "hot potato voice" pain and swelling to right side of throat, patient was hospitalized on 06/02/2016 with peritonsillar abscess presents today with same symptoms. Patient was seen in the the office of Dr. Millard and sent here to rule out peritonsillar abscess. Allergies: No known allergies Medications: see medication list Family History: Non-contributory Social History: Denies smoking, alcohol use, or IVDU PCP: DR. Millard Review of Systems GENERAL/CONSTITUTIONAL: No fever or chills. No weakness. No weight change. HEAD, EYES, EARS, NOSE AND THROAT: No change in vision. No ear pain or discharge. Right-sided throat pain and fullness, dysphagia CARDIOVASCULAR: No chest pain or shortness of breath. RESPIRATORY: No cough, wheezing, or hemoptysis. GASTROINTESTINAL: No nausea, vomiting, diarrhea or constipation. No rectal bleeding. GENITOURINARY: No dysuria, frequency, or change in urination. MUSCULOSKELETAL: No joint or muscle swelling or pain. No neck or back pain. SKIN AND BREASTS: No rash or easy bruising. NEUROLOGIC: No headache, vertigo, loss of consciousness, or loss of sensation. PSYCHIATRIC: No depression or anxiety. ENDOCRINE: No increased thirst. No abnormal weight change. HEMATOLOGIC/LYMPHATIC: No anemia, easy bleeding, or history of blood clots. ALLERGIC/IMMUNOLOGIC: No hives or skin allergy. No latex allergy. Physical Exam: GENERAL: The patient is awake, alert, and fully oriented, in no acute distress. HEAD: Normal with no signs of trauma. EYES: Pupils equal, round and reactive to light, extraocular movements intact, sclera anicteric, conjunctiva clear. ENT: Ears normal, nares patent, edema, fullness to soft palate on the right, uvula deviation. Moist mucous membranes. NECK: Normal range of motion, supple without lymphadenopathy, JVD, or masses. LUNGS: Breath sounds equal, clear to auscultation bilaterally. No wheezes, and no crackles. HEART: Regular rate and rhythm, normal S1 and S2 without murmur, rub or gallop. ABDOMEN: Soft, nontender, normoactive bowel sounds. No guarding, no rebound. No masses. No bruising or abrasions MUSCULOSKELETAL: Normal range of motion, no edema. No clubbing or cyanosis. No cords, erythema, or tenderness. No CVA Tenderness with fist. NEUROLOGICAL: Cranial nerves II through XII grossly intact. Normal speech, normal gait. SKIN: Warm, Dry, normal turgor, no rashes or lesions noted. 12/03/16 15:40 12/03/16 16:04 12/03/16 16:05 Past History - Past Medical History Allergies/Adverse Reactions: Allergies Allergy/AdvReac Type Severity Reaction Status Date / Time aspirin Allergy Intermediate rash and Verified 12/03/16 14:32 hives codeine Allergy Intermediate SEVERE Verified 12/03/16 14:32 INDIGESTION ibuprofen [From Advil] AdvReac Intermediate Hives Verified 12/03/16 14:32 Home Medications: Ambulatory Orders Gabapentin [Neurontin] 100 mg PO BID 06/19/15 Rosuvastatin [Crestor -] 5 mg PO HS 06/19/15 Furosemide 20 mg PO ASDIR 06/02/16 Diabetes: Yes (BORDERLINE) Hypercholesterolemia: Yes - Surgical History Appendectomy: Yes - Immunization History Immunization Up to Date: Yes - Suicide/Smoking/Psychosocial Hx Smoking History: Former smoker Have you smoked in the past 12 months: No If you are a former smoker, when did you quit?: 45 yrs ago Information on smoking cessation initiated: No Hx Alcohol Use: No Drug/Substance Use Hx: No Substance Use Type: None *Physical Exam - Vital Signs Last Vital Signs Temp Pulse Resp BP Pulse Ox 98.1 F 73 20 158/88 96 12/03/16 14:33 12/03/16 14:33 12/03/16 14:33 12/03/16 14:33 12/03/16 14:33 ED Treatment Course - LABORATORY CBC & Chemistry Diagram: 12/03/16 15:27 12/03/16 15:27 Medical Decision Making - Medical Decision Making 12/03/16 16:07 A/P: Patient here for evaluation of recurrent peritonsillar abscess. CBC, CMP ordered, saline lock placed. Decadron 10 mg IV ordered. Pending CMP, CT soft tissue neck 1 g IV Tylenol Patient was initially triaged to [facility]. After review of the history of present illness and physical examination by Nurse Practitioner, the patient was transferred to the main ED for higher lever of care. The patient is medically stable for transfer. report to Michelle charge nurse and Dr. Wills. 12/03/16 19:01
[2016-12-03] MEDS ORDERED: DEXAMETHASONE SOD PHOSPHATE 20 MG/5 ML VIAL IVPB ONE (15:12)
[2016-12-03] MEDS ORDERED: ACETAMINOPHEN 1000 MG/100 ML VIAL (NON FORMULARY) IVPB ONE ×2 (15:14→20:34)
[2016-12-03] MEDS ORDERED: ACETAMINOPHEN INJECTION 100 ML IVPB ONE (15:34)
[2016-12-03] MEDS ORDERED: DEXAMETHASONE SOD PHOSPHATE 10 MG/1 ML VIAL ONE (15:35)
[2016-12-03 15:46] LABS: BASOPHIL 1.1 % (0-2.0); EOSINOPHIL 3.7 % (0-4.5); MCH 24.9 pg (25.7-33.7); MCHC 32.1 g/dl (32.0-36.0); MEAN CELL VOLUME 77.4 fl (80-96); MEAN PLT VOLUME 7.8 fl (7.5-11.1); PLATELET COUNT 227 K/MM3 (134-434); RDW 15.4 % (11.6-15.6); WHITE BLOOD COUNT 6.4 K/mm3 (4.0-10.0)
[2016-12-03] MEDS ORDERED: CLINDAMYCIN IVPB 300 MG in DEXTROSE 5%-WATER - 48 ML IVPB ONE (16:13)
[2016-12-03 16:27] LABS: GLUCOSE,RANDOM 86 mg/dL (74-106)
[2016-12-03 16:28] LABS: ALBUMIN 3.9 g/dl (3.4-5.0); ALK PHOS 80 U/L (45-117); ANION GAP 8 (8-16); BILIRUBIN,TOTAL 0.9 mg/dL (0.2-1.0); CALCIUM 8.8 mg/dL (8.5-10.1); CO2 29 mmol/L (21-32); SGOT/AST 11 U/L (15-37); SGPT/ALT 19 U/L (12-78); TOT PROT 7.7 g/dl (6.4-8.2)
[2016-12-03] MEDS ORDERED: morphine CARPU-JECT 4 MG/1 ML DISP.SYRIN IVPUSH ONE (16:31)
--- NOTE | 2016-12-03 17:09 | PDOC ---
*Physical Exam - Vital Signs Last Vital Signs Temp Pulse Resp BP Pulse Ox 98.1 F 73 20 158/88 96 12/03/16 14:33 12/03/16 14:33 12/03/16 14:33 12/03/16 14:33 12/03/16 14:33 ED Treatment Course - LABORATORY CBC & Chemistry Diagram: 12/03/16 15:27 12/03/16 15:27 - ADDITIONAL ORDERS Additional order review: Laboratory Results 12/03/16 15:27 Sodium 141 Potassium 3.9 Chloride 104 Carbon Dioxide 29 D Anion Gap 8 BUN 17 Creatinine 1.0 Creat Clearance w eGFR 55.30 Random Glucose 86 D Calcium 8.8 Total Bilirubin 0.9 D AST 11 L ALT 19 Alkaline Phosphatase 80 Total Protein 7.7 Albumin 3.9 D 12/03/16 15:06 Group A Strep Rapid Antigen - Final Throat 12/03/16 15:27 RBC 4.87 MCV 77.4 L MCHC 32.1 RDW 15.4 MPV 7.8 Neutrophils % 54.0 D Lymphocytes % 30.9 D Monocytes % 10.3 H D Eosinophils % 3.7 D Basophils % 1.1 D - RADIOLOGY Radiology Studies Ordered: Category Date Time Status SOFT TISSUE NECK CT W/O CONTR [CT] Stat CT Scan 12/03/16 16:30 Ordered - Medications Given in the ED: ED Medications Discontinued Medications Generic Name Dose Route Start Last Admin Trade Name Freq PRN Reason Stop Dose Admin Acetaminophen 1,000 mg 12/03/16 15:14 12/03/16 15:41 Ofirmev Injection - IVPB 12/03/16 15:15 1,000 mg ONCE ONE Administration Dexamethasone Sodium Phosphate 10 mg 12/03/16 15:12 12/03/16 15:41 Decadron Injection - IVPB 12/03/16 15:13 10 mg ONCE ONE Administration Medical Decision Making - Medical Decision Making 12/03/16 18:25 Patient is a 66-year-old female, with history of borderline diabetes and high cholesterol presents emergency Department with "hot potato voice" pain and swelling to right side of throat, patient was hospitalized on 06/02/2016 with peritonsillar abscess presents today with same symptoms. Patient was seen in the the office of Dr. Millard and sent here to rule out peritonsillar abscess. Soft Tissue of the neck ordered to evaluate peritonsillar abscess. 12/03/16 18:26 12/03/16 19:[address] report Signed out to Dr. Bowie 12/03/16 20:07 *DC/Admit/Observation/Transfer Diagnosis at time of Disposition: Peritonsillar abscess - Referrals Referrals: Tommie Millard MD [Primary Care Provider] -
[2016-12-03] MEDS ORDERED: CLINDAMYCIN PHOSPHATE 600 MG/4 ML VIAL ONE (18:25)
[2016-12-03] MEDS ORDERED: morphine CARPU-JECT 10 MG/1 ML DISP.SYRIN ONE (18:25)
--- NOTE | 2016-12-03 20:27 | PDOC ---
History of Present Illness - General Chief Complaint: Sore Throat Stated Complaint: SENT BY PCP Time Seen by Provider: 12/03/16 14:46 Past History - Past Medical History Allergies/Adverse Reactions: Allergies Allergy/AdvReac Type Severity Reaction Status Date / Time aspirin Allergy Intermediate rash and Verified 12/03/16 14:32 hives codeine Allergy Intermediate SEVERE Verified 12/03/16 14:32 INDIGESTION ibuprofen [From Advil] AdvReac Intermediate Hives Verified 12/03/16 14:32 Home Medications: Ambulatory Orders Gabapentin [Neurontin] 100 mg PO BID 06/19/15 Rosuvastatin [Crestor -] 5 mg PO HS 06/19/15 Furosemide 20 mg PO ASDIR 06/02/16 Diabetes: Yes (BORDERLINE) Hypercholesterolemia: Yes - Surgical History Appendectomy: Yes - Immunization History Immunization Up to Date: Yes - Suicide/Smoking/Psychosocial Hx Smoking History: Former smoker Have you smoked in the past 12 months: No If you are a former smoker, when did you quit?: 45 yrs ago Information on smoking cessation initiated: No Hx Alcohol Use: No Drug/Substance Use Hx: No Substance Use Type: None *Physical Exam - Vital Signs Last Vital Signs Temp Pulse Resp BP Pulse Ox 98.1 F 73 20 158/88 96 12/03/16 14:33 12/03/16 14:33 12/03/16 14:33 12/03/16 14:33 12/03/16 14:33 ED Treatment Course - LABORATORY CBC & Chemistry Diagram: 12/03/16 15:27 12/03/16 15:27 - ADDITIONAL ORDERS Additional order review: Laboratory Results 12/03/16 15:27 Sodium 141 Potassium 3.9 Chloride 104 Carbon Dioxide 29 D Anion Gap 8 BUN 17 Creatinine 1.0 Creat Clearance w eGFR 55.30 Random Glucose 86 D Calcium 8.8 Total Bilirubin 0.9 D AST 11 L ALT 19 Alkaline Phosphatase 80 Total Protein 7.7 Albumin 3.9 D 12/03/16 15:06 Group A Strep Rapid Antigen - Final Throat 12/03/16 15:27 RBC 4.87 MCV 77.4 L MCHC 32.1 RDW 15.4 MPV 7.8 Neutrophils % 54.0 D Lymphocytes % 30.9 D Monocytes % 10.3 H D Eosinophils % 3.7 D Basophils % 1.1 D - Medications Given in the ED: ED Medications Discontinued Medications Generic Name Dose Route Start Last Admin Trade Name Setw PRN Reason Stop Dose Admin Acetaminophen 1,000 mg 12/03/16 15:14 12/03/16 15:41 Ofirmev Injection - IVPB 12/03/16 15:15 1,000 mg ONCE ONE Administration Dexamethasone Sodium Phosphate 10 mg 12/03/16 15:12 12/03/16 15:41 Decadron Injection - IVPB 12/03/16 15:13 10 mg ONCE ONE Administration Clindamycin Phosphate 300 mg/ 50 mls @ 100 mls/hr 12/03/16 16:13 12/03/16 18:38 Dextrose IVPB 12/03/16 16:42 100 mls/hr ONCE ONE Administration Morphine Sulfate 4 mg 12/03/16 16:31 12/03/16 19:56 Morphine Injection - IVPUSH 12/03/16 16:32 Not Given ONCE ONE Medical Decision Making - Medical Decision Making 12/03/16 20:[address] Wills (Resident) and Dr. Montejo (Attending) Patient is a 66 y.o. who presents at the behest of her PCP, Dr. Millard, for a concern for peritonsillar abscess. On PE patient has characteristic "hot potato " voice and c/o R sided facial pain. 12/03/16 20:[address] - as CT was done w/o contrast, will have difficulty assessing presence of abscess 12/03/16 20:38 CT called notes likely tumor; ENT paged. 12/03/16 20:52 CT: (1) Masslike enlargement of right palantine tonsil (2.5 x 2.2 x 3.1) - given persistent enlargement since previous CT, findings suspicious for malignancy. 12/03/16 21:01 Spoke with ENT - no acute intervention required. Patient to be discharged with pain control and referral to ENT. *DC/Admit/Observation/Transfer Diagnosis at time of Disposition: Peritonsillar abscess - Referrals Referrals: Tommie Millard MD [Primary Care Provider] - - Patient Instructions - Post Discharge Activity
--- NOTE | 2016-12-03 21:04 | PDOC ---
*Physical Exam - Vital Signs Last Vital Signs Temp Pulse Resp BP Pulse Ox 98.1 F 73 20 158/88 96 12/03/16 14:33 12/03/16 14:33 12/03/16 14:33 12/03/16 14:33 12/03/16 14:33 - Physical Exam General Appearance: Yes: Nourished, Appropriately Dressed HEENT: positive: TMs Normal, Muffled/Hoarse voice (Guttural voice), Other. negative: Pharyngeal Erythema (; patient unable to full open oral cavity for inspection, however no phargyngeal erythema noted from limited examination), TM Bulging, TM Dull, TM Erythema Respiratory/Chest: positive: Lungs Clear Cardiovascular: positive: S1, S2 Neurologic: positive: Fully Oriented, Alert ED Treatment Course - LABORATORY CBC & Chemistry Diagram: 12/03/16 15:27 12/03/16 15:27 - ADDITIONAL ORDERS Additional order review: Laboratory Results 12/03/16 15:27 Sodium 141 Potassium 3.9 Chloride 104 Carbon Dioxide 29 D Anion Gap 8 BUN 17 Creatinine 1.0 Creat Clearance w eGFR 55.30 Random Glucose 86 D Calcium 8.8 Total Bilirubin 0.9 D AST 11 L ALT 19 Alkaline Phosphatase 80 Total Protein 7.7 Albumin 3.9 D 12/03/16 15:06 Group A Strep Rapid Antigen - Final Throat 12/03/16 15:27 RBC 4.87 MCV 77.4 L MCHC 32.1 RDW 15.4 MPV 7.8 Neutrophils % 54.0 D Lymphocytes % 30.9 D Monocytes % 10.3 H D Eosinophils % 3.7 D Basophils % 1.1 D - Medications Given in the ED: ED Medications Discontinued Medications Generic Name Dose Route Start Last Admin Trade Name Stew PRN Reason Stop Dose Admin Acetaminophen 1,000 mg 12/03/16 15:14 12/03/16 15:41 Ofirmev Injection - IVPB 12/03/16 15:15 1,000 mg ONCE ONE Administration Dexamethasone Sodium Phosphate 10 mg 12/03/16 15:12 12/03/16 15:41 Decadron Injection - IVPB 12/03/16 15:13 10 mg ONCE ONE Administration Clindamycin Phosphate 300 mg/ 50 mls @ 100 mls/hr 12/03/16 16:13 12/03/16 18:38 Dextrose IVPB 12/03/16 16:42 100 mls/hr ONCE ONE Administration Morphine Sulfate 4 mg 12/03/16 16:31 12/03/16 19:56 Morphine Injection - IVPUSH 12/03/16 16:32 Not Given ONCE ONE Medical Decision Making - Medical Decision Making 12/03/16 20:[address] Wills (Resident) and Dr. Montejo (Attending) Patient is a 66 y.o. who presents at the behest of her PCP, Dr. Millard, for a concern for peritonsillar abscess. On PE patient has characteristic "hot potato " voice and c/o R sided facial pain. 12/03/16 20:[address] - as CT was done w/o contrast, will have difficulty assessing presence of abscess 12/03/16 20:38 CT called notes likely tumor; ENT paged. 12/03/16 20:52 CT: (1) Masslike enlargement of right palantine tonsil (2.5 x 2.2 x 3.1) - given persistent enlargement since previous CT (2 x 1.3 in 05/2016), findings suspicious for malignancy. 12/03/16 21:01 Spoke with ENT - no acute intervention required. Patient to be discharged with pain control and referral to ENT. *DC/Admit/Observation/Transfer Diagnosis at time of Disposition: Peritonsillar abscess, Sore throat - Discharge Dispostion Disposition: HOME Condition at time of disposition: Good - Prescriptions Prescriptions: Acetaminophen [Tylenol -] 1,000 mg PO Q6H #20 tablet - Referrals Referrals: Tommie Millard MD [Primary Care Provider] - Luis Pagan MD [Staff Physician] - - Patient Instructions Printed Discharge Instructions: DI for Viral Pharyngitis, Sore Throat Additional Instructions: You were evaluated today for an enlargement of your R tonsil. A copy of your CT scan has been provided to you. Please schedule an appointment with Dr. Pagan and take this CT with you. Please also follow up with Dr. Millard in the next 7- 10 days. Please return to the Emergency Department should you have any worsening or concerning symptoms. - Post Discharge Activity
[2016-12-03] MEDS ORDERED: ACETAMINOPHEN 500 MG TABLET (FP) PO ONE (21:38)
[2016-12-03] MEDS ORDERED: ACETAMINOPHEN 325 MG TABLET (FP) ONE (21:39)
== END 2016-12-03 21:43 | disposition home or self-care (01) ==
LOC: JERFT 14:14 → JER 14:14
PROC: 3E03329 Introduction of Other Anti-infective into Peripheral Vein, Percutaneous Approach (ICD-10-PCS; principal; 2016-12-03)
PROC: 3E033NZ Introduction of Analgesics, Hypnotics, Sedatives into Peripheral Vein, Percutaneous Approach (ICD-10-PCS; 2016-12-03)
PROC: 3E0333Z Introduction of Anti-inflammatory into Peripheral Vein, Percutaneous Approach (ICD-10-PCS; 2016-12-03)
DX: J36 Peritonsillar abscess (principal)
CPT/HCPCS: 36415; 70490-TC; 80053; 85025; 87070; 87430; 99282-25; J8540

== ENCOUNTER 2017-07-10 20:37 | Emergency (ER) | payer OTHER ==
[2017-07-10 20:43] VITALS: BMI 34.4
--- NOTE | 2017-07-10 23:48 | PDOC ---
History of Present Illness - History of Present Illness Initial Comments: 07/10/17 23:42 67 yo F with h/o HTN, borderline DM who p/w R sided STANLEY. Patient reports acute onset of R sided temporal-frontal sharp shooting pain. Pain occuring intermittently at rest and movement, for seconds, and resolving spontaneously. No pain between spasms. No identifiable triggers or alleviators. No associated photophobia, phonophobia, lacrimation, rhinorrhea, visual disturbance, scintillating scotomas, hearing loss, tremors, convulsions, LOC, neck stiffness/ pain. Pain not improved with OTC Tylenol. Reports similar h/o symptoms in past resolving spontaneously. Denies F/C, N/V, cough, jaw pain, vision change, CP, SOB, abdominal pain, diarrhea, constipation, urinary complaints, weakness, lightheadedness, sensory changes. PMHx: as noted above. Does not f/w neuro. Denies h/o TIA/CVA. ROS: as noted above SHx: Denies Etoh, tobacco, IVDA. Denies excessive caffeine intake. <Brady Delarosa - Last Filed: 07/11/17 00:30> <Justin Cohen - Last Filed: 07/11/17 05:21> - General Chief Complaint: Pain, Acute Stated Complaint: FACIAL PAIN Time Seen by Provider: 07/10/17 22:59 Past History - Past Medical History COPD: No Diabetes: Yes (BORDERLINE) Hypercholesterolemia: Yes - Surgical History Appendectomy: Yes - Immunization History Immunization Up to Date: Yes - Suicide/Smoking/Psychosocial Hx Smoking History: Never smoked Have you smoked in the past 12 months: No If you are a former smoker, when did you quit?: 45 yrs ago Information on smoking cessation initiated: No Hx Alcohol Use: No Drug/Substance Use Hx: No Substance Use Type: None <Brady Delarosa - Last Filed: 07/11/17 00:30> <Justin Cohen - Last Filed: 07/11/17 05:21> - Past Medical History Allergies/Adverse Reactions: Allergies Allergy/AdvReac Type Severity Reaction Status Date / Time aspirin Allergy Intermediate rash and Verified 07/10/17 20:43 hives codeine Allergy Intermediate SEVERE Verified 07/10/17 20:43 INDIGESTION ibuprofen [From Advil] AdvReac Intermediate Hives Verified 07/10/17 20:43 Home Medications: Ambulatory Orders Gabapentin [Neurontin] 100 mg PO BID 06/19/15 Rosuvastatin [Crestor -] 5 mg PO HS 06/19/15 Furosemide 20 mg PO ASDIR 06/02/16 Acetaminophen [Tylenol -] 1,000 mg PO Q6H #20 tablet 12/03/16 Review of Systems - Review of Systems Comments:: 07/10/17 23:48 GENERAL/CONSTITUTIONAL: No fever or chills. No weakness. HEAD, EYES, EARS, NOSE AND THROAT: + R sided facial/head pain. No change in vision. No ear pain or discharge. No sore throat. CARDIOVASCULAR: No chest pain or shortness of breath RESPIRATORY: No cough, wheezing, or hemoptysis. GASTROINTESTINAL: No nausea, vomiting, diarrhea or constipation. GENITOURINARY: No dysuria, frequency, or change in urination. MUSCULOSKELETAL: No joint or muscle swelling or pain. No neck or back pain. SKIN: No rash NEUROLOGIC: No headache, vertigo, loss of consciousness, or change in strength/ sensation. ENDOCRINE: No increased thirst. No abnormal weight change HEMATOLOGIC/LYMPHATIC: No anemia, easy bleeding, or history of blood clots. ALLERGIC/IMMUNOLOGIC: No hives or skin allergy. <Brady Delarosa - Last Filed: 07/11/17 00:30> *Physical Exam - Vital Signs Last Vital Signs Temp Pulse Resp BP Pulse Ox 97.9 F 78 18 144/77 91 L 07/10/17 20:41 07/10/17 20:41 07/10/17 20:41 07/10/17 20:41 07/10/17 20:41 - Physical Exam Comments: 07/10/17 23:49 GENERAL: Awake, alert, and fully oriented, in no acute distress HEAD: No signs of trauma, normocephalic, atraumatic EYES: PERRLA, EOMI, sclera anicteric, conjunctiva clear ENT: Hearing grossly normal, nares patent, oropharynx clear without exudates. Moist mucosa. NECK: Normal ROM, supple, no lymphadenopathy, JVD, or masses LUNGS: No distress, speaks full sentences, clear to auscultation bilaterally HEART: Regular rate and rhythm, normal S1 and S2, no murmurs, rubs or gallops, peripheral pulses normal and equal bilaterally. EXTREMITIES : Normal inspection, Normal range of motion, no edema. No clubbing or cyanosis. NEUROLOGICAL: Cranial nerves II through XII grossly intact. Normal speech, normal gait, no focal sensorimotor deficits SKIN: Warm, Dry, normal turgor, no rashes or lesions noted <Brady Delarosa - Last Filed: 07/11/17 00:30> - Vital Signs Last Vital Signs Temp Pulse Resp BP Pulse Ox 97.9 F 78 18 144/77 91 L 07/10/17 20:41 07/10/17 20:41 07/10/17 20:41 07/10/17 20:41 07/10/17 20:41 <Barrett Cohenel - Last Filed: 07/11/17 05:21> ED Treatment Course - LABORATORY CBC & Chemistry Diagram: 07/11/17 00:50 07/11/17 00:50 - ADDITIONAL ORDERS Additional order review: Laboratory Results 07/11/17 07/11/17 00:50 00:50 Sodium 142 Potassium 4.1 Chloride 105 Carbon Dioxide 30 Anion Gap 7 L BUN 19 H Creatinine 1.1 H Creat Clearance w eGFR 49.39 Random Glucose 99 Calcium 8.8 Total Bilirubin 0.5 D AST 19 ALT 19 Alkaline Phosphatase 77 C-Reactive Protein 2.7 H Total Protein 7.5 Albumin 3.5 07/11/17 00:50 RBC 4.65 MCV 78.1 L MCHC 31.5 L RDW 15.9 H MPV 7.6 Neutrophils % 36.8 L Lymphocytes % 47.1 H Monocytes % 10.0 Eosinophils % 5.1 H Basophils % 1.0 - Medications Given in the ED: ED Medications Discontinued Medications Generic Name Dose Route Start Last Admin Trade Name Freq PRN Reason Stop Dose Admin Acetaminophen 1,000 mg 07/11/17 00:14 07/11/17 02:04 Ofirmev Injection - IVPB 07/11/17 00:15 1,000 mg ONCE ONE Administration Sodium Chloride 1,000 mls @ 1,000 mls/hr 07/11/17 00:14 07/11/17 00:59 Normal Saline - IV 07/11/17 01:13 1,000 mls/hr ASDIR STA Administration Metoclopramide HCl 10 mg 07/11/17 00:14 07/11/17 01:17 Reglan - PO 07/11/17 00:15 10 mg ONCE ONE Administration <Justin Cohen - Last Filed: 07/11/17 05:21> Medical Decision Making - Medical Decision Making 07/10/17 23:54 67 yo F with h/o HTN, borderline DM who p/w R sided STANLEY. Patient reports acute onset of R sided temporal-frontal sharp shooting pain. VSS, AF, NAD, A&Ox3. Pain in trigeminal nerve distribution, sudden onset, klastign for seconds, consistent with trigeminal neuralgia. Possible migraine vs. cluster STANLEY. Patient currently does not endorse STANLEY. Low suspicion of CVA/TIA, SAH, CVT. Absent neuro deficits or complaints. No facial weakness, hearing loss. Less likely bells palsy, AOM, Jackie Singer syndrome. No jaw pain, claudication; low suspicion TMJ dz. Denies visual disturbance, chronic temporal pain; unlikely Temporal arteritis. ED Course: 07/11/17 00:15 CBC,CMP, Tylenol, NS, IVF 1 L CTH Patient VSS stable and signed out to night team. Labs and CTH pending. <Brady Delarosa - Last Filed: 07/11/17 00:30> *DC/Admit/Observation/Transfer - Attestations Physician Attestion: 07/10/17 23:58 I attest to the information provided in this note. <Brady Delarosa - Last Filed: 07/11/17 00:30> - Discharge Dispostion Decision to Admit order: No <Justin Cohen - Last Filed: 07/11/17 05:21> Diagnosis at time of Disposition: Facial pain, acute - Discharge Dispostion Disposition: HOME Condition at time of disposition: Stable - Referrals Referrals: Tommie Milladr MD [Primary Care Provider] - Bry Lainez MD [Staff Physician] - - Patient Instructions Printed Discharge Instructions: DI for Trigeminal Neuralgia Additional Instructions: Please return to the emergency department with any new or worsening symptoms or concerns. Please follow up with your primary care physician within 72 hours. Please follow up with neurology within one week. - Post Discharge Activity
--- NOTE | 2017-07-11 00:11 | PDOC ---
Attending Attestation - Resident Resident Name: Parth Delarosason - ED Attending Attestation I have performed the following: I have examined & evaluated the patient, The case was reviewed & discussed with the resident, I agree w/resident's findings & plan, Exceptions are as noted - HPI HPI: 07/11/17 00:08 Ms Mandi Pak is a 67 yo F with h/o HTN, borderline DM who p/w R sided STANLEY. Sharp shooting right sided headache, right zygomatic arch pain Pain began yesterday Described as sharp, shooting pain, rated 10/10, located in the right parietal head/temporal area, right zygomatic arch It is present persistently, the only time she gets relief is when she is sleeping No head trauma No fevers or chills No neck pain Pt had similar symptoms several months ago but they resolved spontaneously No identifiable triggers or alleviators. (-) photophobia, phonophobia, lacrimation, rhinorrhea, visual disturbance Pt was unable to go work today due to her pain 07/11/17 00:16 - Physicial Exam PE: 07/11/17 00:10 GENERAL: Awake, alert, and fully oriented, in no acute distress HEAD: No signs of trauma, normocephalic, atraumatic EYES: PERRLA, EOMI, sclera anicteric, conjunctiva clear ENT: Hearing grossly normal, nares patent, oropharynx clear without exudates. Moist mucosa. NECK: Normal ROM, supple, no lymphadenopathy, JVD, or masses LUNGS: No distress, speaks full sentences, clear to auscultation bilaterally HEART: Regular rate and rhythm, normal S1 and S2, no murmurs, rubs or gallops, peripheral pulses normal and equal bilaterally. EXTREMITIES : Normal inspection, Normal range of motion, no edema. No clubbing or cyanosis. NEUROLOGICAL: Cranial nerves II through XII grossly intact. Normal speech, normal gait, no focal sensorimotor deficits SKIN: Warm, Dry, normal turgor, no rashes or lesions noted - Medical Decision Making 07/11/17 00:19 67 yo F presenting to the ER due to right sided headache which has been present for the psat 2 days Not improved with tylenol Will do: Labs including ESR and CRP Pain medications Re assess
[2017-07-11] MEDS ORDERED: SODIUM CHLORIDE 1,000 ML IV STA (00:14)
[2017-07-11] MEDS ORDERED: ACETAMINOPHEN 1000 MG/100 ML VIAL (NON FORMULARY) IVPB ONE (00:14)
[2017-07-11] MEDS ORDERED: METOCLOPRAMIDE HCL 10 MG TABLET (FP) PO ONE (00:14)
[2017-07-11] MEDS ORDERED: METOCLOPRAMIDE HCL INJECTION 10 MG/2 ML VIAL ONE (00:34)
[2017-07-11 01:03] LABS: EOS % 5.1 % (0-4.5); HEMATOCRIT 36.3 % (32.4-45.2); HEMOGLOBIN 11.4 GM/dL (10.7-15.3); LYMPH % 47.1 % (8-40); MCH 24.6 pg (25.7-33.7); MCHC 31.5 g/dl (32.0-36.0); MEAN CELL VOLUME 78.1 fl (80-96); MEAN PLT VOLUME 7.6 fl (7.5-11.1); NEUT % 36.8 % (42.8-82.8); PLATELET COUNT 236 K/MM3 (134-434); RBC 4.65 M/mm3 (3.60-5.2); RDW 15.9 % (11.6-15.6); WHITE BLOOD COUNT 5.6 K/mm3 (4.0-10.0)
[2017-07-11 01:25] LABS: ALBUMIN 3.5 g/dl (3.4-5.0); ANION GAP 7 (8-16); BILIRUBIN,TOTAL 0.5 mg/dL (0.2-1.0); BLOOD UREA NITROGEN 19 mg/dL (7-18); CALCIUM 8.8 mg/dL (8.5-10.1); CHLORIDE 105 mmol/L (98-107); CO2 30 mmol/L (21-32); CREATININE 1.1 mg/dL (0.55-1.02); GLUCOSE,RANDOM 99 mg/dL (74-106); POTASSIUM 4.1 mmol/L (3.5-5.1); SGOT/AST 19 U/L (15-37); SGPT/ALT 19 U/L (12-78); SODIUM 142 mmol/L (136-145); TOT PROT 7.5 g/dl (6.4-8.2)
[2017-07-11 01:26] LABS: ALK PHOS 77 U/L (45-117)
[2017-07-11] MEDS ORDERED: ACETAMINOPHEN INJECTION 100 ML IVPB ONE (01:28)
[2017-07-11] MEDS ORDERED: ACETAMINOPHEN 325 MG TABLET (FP) PO ONE (05:38)
[2017-07-11] MEDS ORDERED: ACETAMINOPHEN 325 MG TABLET (FP) ONE (05:40)
[2017-07-11 05:45] VITALS: BP 144/76; PULSE 77; TEMP 97.8
== END 2017-07-11 05:45 | disposition home or self-care (01) ==
LOC: JER 20:37
PROC: 3E0337Z Introduction of Electrolytic and Water Balance Substance into Peripheral Vein, Percutaneous Approach (ICD-10-PCS; principal; 2017-07-10)
PROC: 3E033NZ Introduction of Analgesics, Hypnotics, Sedatives into Peripheral Vein, Percutaneous Approach (ICD-10-PCS; 2017-07-10)
DX: G50.0 Trigeminal neuralgia (principal); I10 Essential (primary) hypertension; E78.00 Pure hypercholesterolemia, unspecified; E11.9 Type 2 diabetes mellitus without complications; Z88.8 Allergy status to other drugs, medicaments and biological substances
CPT/HCPCS: 36415; 70450-TC; 80053; 85025; 85651; 86140; 99281-25; J0131; J7030

== ENCOUNTER 2018-09-24 08:09 | Emergency (ER) | payer OTHER | END 2018-09-24 11:15 | disposition home or self-care (01) | LOC: JER 08:09 ==

== ENCOUNTER 2021-11-30 02:34 | Emergency (ER) | payer OTHER ==
[2021-11-30 02:48] VITALS: BMI 37.6
[2021-11-30] MEDS ORDERED: MAG HYDROX/AL HYDROX/SIMETH 30 ML UNIT-DOSE CUP PO ONE (04:02)
[2021-11-30] MEDS ORDERED: SODIUM CHLORIDE 1,000 ML IV STA (04:02)
[2021-11-30] MEDS ORDERED: FAMOTIDINE 20 MG/50 ML IVPB 20 MG/50 ML MG IVPB ONE ×2 (04:02→04:07)
[2021-11-30] MEDS ORDERED: ACETAMINOPHEN 1000 MG/100 ML BAG IVPB ONE (04:02)
[2021-11-30] MEDS ORDERED: ACETAMINOPHEN INJECTION 100 ML IVPB ONE (04:07)
[2021-11-30] MEDS ORDERED: MAG HYDROX/AL HYDROX/SIMETH 30 ML UNIT-DOSE CUP ONE (04:07)
[2021-11-30 05:03] LABS: BASO % 1.1 % (0-2.0); EOS % 0.3 % (0-4.5); HEMATOCRIT 34.5 % (32.4-45.2); HEMOGLOBIN 11.2 GM/dL (10.7-15.3); LYMPH % 23.5 % (8-40); MCH 25.4 pg (25.7-33.7); MCHC 32.5 g/dl (32.0-36.0); MEAN CELL VOLUME 78.1 fl (80-96); MONO % 8.1 % (3.8-10.2); PLATELET COUNT 223 10^3/uL (134-434); RBC 4.42 M/mm3 (3.60-5.2); RDW 15.7 % (11.6-15.6); WHITE BLOOD COUNT 6.1 K/mm3 (4.0-10.0)
[2021-11-30 05:22] LABS: ALBUMIN 3.6 g/dl (3.4-5.0); BLOOD UREA NITROGEN 16.1 mg/dL (7-18); CALCIUM 9.1 mg/dL (8.5-10.1)
[2021-11-30 05:26] LABS: BILIRUBIN,TOTAL 0.7 mg/dL (0.2-1); TOT PROT 7.5 g/dl (6.4-8.2)
[2021-11-30 08:37] VITALS: BP 128/77; PULSE 75; RESP 20; TEMP 98.1
== END 2021-11-30 08:40 | disposition home or self-care (01) ==
LOC: JER 02:34
PROC: 3E033GC Introduction of Other Therapeutic Substance into Peripheral Vein, Percutaneous Approach (ICD-10-PCS; principal; 2021-11-30)
DX: R10.13 Epigastric pain (principal); R11.10 Vomiting, unspecified
CPT/HCPCS: 0241U-QW; 36415; 71045-TC-FY; 71275-TC; 74174-TC; 80053; 83690; 84484; 85025; 93005; 93010; 99285-25; Q9967

== ENCOUNTER 2023-04-20 04:32 | Day surgery (SDC) | payer OTHER ==
[2023-04-16 07:57] VITALS: BMI 36.6
[2023-04-20] MEDS ORDERED: MIDAZOLAM HCL 2 MG/2 ML SINGLE DOSE VIAL ONE (10:27)
[2023-04-20 11:26] VITALS: TEMP 97.7
[2023-04-20 11:29] VITALS: BP 118/52; PULSE 75; RESP 20
== END 2023-04-20 12:20 | disposition home or self-care (01) ==
LOC: JASU-ENDO 04:32
PROVIDERS: ATTEND Internal Medicine Gastroenterology
PROC: 0DB78ZX Excision of Stomach, Pylorus, Via Natural or Artificial Opening Endoscopic, Diagnostic (ICD-10-PCS; 2023-04-20)
PROC: 0DB68ZX Excision of Stomach, Via Natural or Artificial Opening Endoscopic, Diagnostic (ICD-10-PCS; 2023-04-20)
PROC: 0DB98ZX Excision of Duodenum, Via Natural or Artificial Opening Endoscopic, Diagnostic (ICD-10-PCS; principal; 2023-04-20 11:00)
DX: K29.50 Unspecified chronic gastritis without bleeding (principal); K31.7 Polyp of stomach and duodenum; I10 Essential (primary) hypertension
CPT/HCPCS: 88305-TC; 88342-TC